=== PATIENT | female | born 1975 | race Caucasian/White ===

== ENCOUNTER 2018-03-02 17:32 | Outpatient (REF) | payer BC, OTHER, SELFPAY | END 2018-03-02 17:52 | LOC: NCHCN 17:32 | PROVIDERS: PCP Family Medicine; Visit Provider Nurse Practitioner Family | DX: R59.0 Localized enlarged lymph nodes (principal) | CPT/HCPCS: 85025 ==

== ENCOUNTER 2018-03-04 03:41 | Emergency (ER) | payer BC, SELFPAY ==
[2018-03-04 03:45] VITALS: BP 129/89; PULSE 90; RESP 14; TEMP 36.4; O2SAT 98
--- NOTE | 2018-03-04 04:16 | ED.GENADUL_ITS ---
Discharge Plan Disposition Patient Disposition: HOME Condition: Good Discharge Details Chief Complaint: Sorethroat Clinical Impression: Strep pharyngitis, Cyst of thyroid Primary Care Provider: Jeremiah Jerez ED Provider: Fredrick Ware [place] Meds and New Rx's Prescriptions: Continue famciclovir 500 MG tablet 500 mg PO DAILY RF: 0 multivitamin [Daily Value] 1 EACH tablet 1 ea PO PRN PRNRF: 0 levothyroxine 50 MCG tablet 50 mcg PO DAILY RF: 0 Discharge Instructions Instructions: Strep Throat (ED) Additional Instructions: Rest today and drink plenty of fluids to stay hydrated. Use ibuprofen or acetaminophen for pain. Try Cepacol lozenges to help soothe the throat. Follow -up with primary care in a couple days if not doing better. Discussed with primary care changing the neck ultrasound to a thyroid ultrasound. Return to ED for inability to swallow, difficulty breathing, worsening pain, high fever, other concerns. Stand Alone Forms: Work Release Referrals: Jeremiah Jerez [Primary Care Provider] - Medical Decision Making Patient here with difficulty swallowing and anterior neck pain. She seems to have some anterior neck swelling almost like diffuse thyroid gland swelling. I do not feel discrete lymph nodes. Difficult to examine her neck though because of so much tenderness. She has no respiratory difficulty. Airway is intact with no stridor. She is not febrile. Posterior oropharynx looks clear. We will go ahead and get a strep swab but I do not think that is what is going on. We will place an IV and check labs and do a CT scan of the neck with IV contrast. Patient's rapid strep is faintly positive. White count is slightly elevated to 14.5. TSH normal. CMP normal. CT scan of the neck shows no lymphadenopathy. Normal salivary glands. Normal epiglottis, no evidence of tonsillar swelling or abscess. There is a cyst in the right lobe of the thyroid. This will need outpatient ultrasound follow-up. Discussed findings with patient. She is not febrile. She does not have erythema or exudate in the throat. She does have significant pain. Discussed waiting for cultures versus just treating with penicillin. She would like to just have a shot of penicillin and be done with it. She will follow-up with primary care in the next couple of days if not better. She will need to discuss with him the thyroid ultrasound. Return to ED if worse. Imaging Data Radiologic Study: Imaging: CT Scan Radiologist's impression: Patient Name: Leighton JOHNSTON #: [id number]: ER Ordering Provider: : PRE ER Primary Care Provider: Jeremiah Jerez Date of Exam: 03/04/18ex: F : 1975Age: 43 Exam(s) EXAM: CT Neck With Intravenous Contrast EXAM DATE/TIME: 03/04/2018 4:05 AM CLINICAL HISTORY: 43 years old, female; Signs and symptoms; Other: Anterior neck pain/swelling; Trouble swallowing; Prior surgery; Surgery date: 6+ months; Surgery type: Surgery related to hodgkins TECHNIQUE: Axial computed tomography images of the neck with intravenous contrast. All CT scans at this facility use at least one of these dose optimization techniques: automated exposure control; mA and/or kV adjustment per patient size (includes targeted exams where dose is matched to clinical indication); or iterative reconstruction. Coronal and sagittal reformatted images were created and reviewed. CONTRAST: 100 ml of Omnipaque 350 administered intravenously. COMPARISON: No relevant prior studies available. FINDINGS: Nasopharynx: Normal. Oropharynx: Normal. No significant tonsillar enlargement. No peritonsillar abscess. Hypopharynx: Normal. Larynx: Normal. Normal epiglottis. Trachea: Normal. Retropharyngeal space: Normal. Submandibular/Parotid glands: Normal. Glands are normal in size. Thyroid: Hypodense thyroid lesions noted most prominent on the right which may reflect colloid cysts measuring up to 17 x 14 mm.Recommend follow-up thyroid ultrasound.. Bones/joints: Normal. No acute fracture. Soft tissues: Normal. No significant soft tissue swelling. Vasculature: No acute findings. Lymph nodes: Normal. No lymphadenopathy. Lung apices: Normal as visualized. IMPRESSION: No acute findings Incidental findings that may require followup: Hypodense thyroid lesions noted most prominent on the right which may reflect colloid cysts measuring up to 17 x 14 mm.Recommend follow-up thyroid ultrasound.. Dictated and Authenticated by: Carlos Owusu MD. Ordering:RUSTY KELLY MD Lab Data Lab results reviewed: Yes I reviewed the patient's lab results. HPI General Mode of arrival: ambulatory . Date/Time Provider Initiated Documentation: 03/04/18 03:51 . Limitations to Documentation: no limitations . Information obtained by: patient . HPI Narrative: Patient presents with sore throat, difficulty swallowing, anterior neck pain. Patient reports history of intermittent hoarseness for the last month. Seem to get worse over the weekend with some pain in the left side of her neck. She was seen by primary care physician on Friday for increasing pain. Labs and ultrasound were ordered. She was told to come to the ED if she got worse in the meantime. Now she is having difficulty swallowing and is more hoarse. She is not having trouble breathing. She has not had fever. She has a history of Hodgkin's disease. She has not noticed lymph nodes anywhere. She has not had night sweats or weight loss. Related Data Home Medications Medication Instructions Recorded Confirmed famciclovir 500 mg PO DAILY 04/10/16 03/04/18 levothyroxine 50 mcg PO DAILY 04/10/16 03/04/18 multivitamin [Daily Value] 1 ea PO PRN PRN 04/10/16 03/04/18 Allergies Allergy/AdvReac Type Severity Reaction Status Date / Time No Known Drug Allergies Allergy Unverified 03/04/18 03:45 General Stated Complaint: Sorethroat HALLE: 4 Review of Systems Constitutional Denies fatigue, Denies fever(s), Denies headache(s), Denies malaise, Denies night sweats, Denies poor appetite, Denies weakness and Denies weight loss Eyes Denies change in vision and Denies eye discharge ENT Reports dysphagia, Denies otalgia, Denies headache(s), Reports hoarseness, Denies mouth lesions, Denies mouth pain, Denies nasal congestion, Denies nasal discharge, Reports neck pain, Denies sinus pain, Denies sinus pressure and Reports sore throat Cardiovascular Denies chest pain, Denies diaphoresis, Denies syncope, Denies edema and Denies dyspnea Respiratory Denies cough and Denies dyspnea Gastrointestinal Denies abdominal pain, Reports dysphagia, Denies diarrhea, Denies nausea and Denies vomiting Genitourinary Denies dysuria, Denies pelvic pain and Denies flank pain Musculoskeletal Denies back pain, Denies myalgias, Reports neck pain and Denies numbness Integumentary/Breasts Denies rash Neurologic Denies abnormal speech, Denies syncope, Denies headache(s), Denies focal weakness, Denies numbness and Denies weakness Endocrine Denies fatigue PFSH H/O: hysterectomy (Chronic) Hodgkin lymphoma (Chronic) Hypothyroid (Chronic) Medical History H/O: hysterectomy (Chronic) Hodgkin lymphoma (Chronic) Hypothyroid (Chronic) Social History Smoking/Tobacco Use Status: Never Social History Smoking/Tobacco Use Status: Never Exam Const General: cooperative, uncomfortable and no acute distress Orientation: alert and oriented x3 HENMT Head: normocephalic and atraumatic Ears: external ears normal General nose exam: external nose normal and no nasal discharge Face and sinus: normal facial exam Mouth: oropharynx normal and moist mucous membranes Throat: uvula midline and posterior oropharynx abnormal Neck Neck: trachea midline, anterior neck swelling (mild), no lymphadenopathy noted and tender Resp Effort & Inspection: normal respiratory effort and no stridor Auscultation: clear to auscultation bilaterally Cardio Rate: regular rate Rhythm: regular rhythm Heart Sounds: S1 normal and S2 normal Skin General skin exam: no erythema Neuro General: alert, oriented x3, no focal motor deficits and CN's II-XI intact bilaterally Extrem General: no clubbing, cyanosis or edema Course Vital Signs Temperature 97.5 F L 03/04/18 03:45 Pulse 90 03/04/18 03:45 Respiratory Rate 14 03/04/18 03:45 Blood Pressure 129/89 03/04/18 03:45 Pulse Oximetry 98 03/04/18 03:45 Temperature 97.5 F L 03/04/18 03:45 Temperature Source Temporal Artery Scan 03/04/18 03:45 Pulse 90 03/04/18 03:45 Respiratory Rate 14 03/04/18 03:45 Respiratory Effort 03/04/18 03:45 Blood Pressure 129/89 03/04/18 03:45 Blood Pressure Position Sitting 03/04/18 03:45 Pulse Oximetry 98 03/04/18 03:45 Oxygen Delivery Method Room Air 03/04/18 03:45 Oxygen Flow Rate 0 03/04/18 03:45 Pain Level 8 03/04/18 03:45
[2018-03-04 04:24] LABS: Abs Immature Grans 0.03 k/cumm (0.0-0.09); Absolute Basophil Count 0.04 k/cumm (0.0-0.2); Absolute Eosinophil Count 0.13 k/cumm (0.0-0.7); Absolute Lymphocyte Count 3.24 k/cumm (1.2-3.4); Absolute Monocyte Count 0.95 k/cumm (0.11-0.7); Absolute Neutrophil Count 10.06 k/cumm (1.2-6.7); Basophils % 0.3; Eosinophils % 0.9; HCT 40.8 % (36.0-46.0); HGB 13.6 g/dL (12.0-15.5); Immature Grans % 0.2; Lymphocytes % 22.4; Mean Corp. HGB Concentration 33.3 g/dL (32.0-36.0); Mean Corpuscular Hemoglobin 31.6 pg (27.0-33.0); Mean Corpuscular Volume 94.7 fL (80-95); Mean Platelet Volume 9.1 fL (8.0-11.0); Monocytes % 6.6; Neutrophils % 69.6; Platelet Count 334 x1000/uL (130-400); RBC 4.31 m/cumm (4.00-5.20); RBC Distribution Width 12.8 % (11.7-14.6); White Blood Cell Count 14.46 k/cumm (4.4-10.8)
[2018-03-04] MEDS: Ketorolac 15 MG/ML VIAL IVP (04:24)
[2018-03-04] MEDS: Normal Saline 1,000 ML 150 ML IV (04:24)
[2018-03-04 04:47] LABS: ALT 38 U/L (12-78); AST 26 U/L (15-37); Albumin 3.7 g/dL (3.4-5.0); Alkaline Phosphatase 90 U/L (46-116); Anion Gap 8.4 mmol/L (3-11); BUN 18 mg/dL (7-18); Bilirubin, Total 0.2 mg/dL (0.2-1.0); CO2 27.6 mmol/L (21.0-32.0); CREATININE 0.73 mg/dL (0.55-1.02); Calcium 9.2 mg/dL (8.5-10.1); Chloride 103 mmol/L (98-107); Glucose 94 mg/dL (70-100); Potassium 4.1 mmol/L (3.5-5.1); Sodium 139 mmol/L (136-145); TSH (W/Ref FT4) 2.99 uIU/mL (0.358-3.74)
--- NOTE | 2018-03-04 04:55 | DI.CT_ITS ---
SYMPTOMS/DIAGNOSIS: ANTERIOR NECK PAIN/SWELLING, TROUBLE SWALLOWING, H/O HODGKIN'S CT OF THE NECK: Post contrast exam was performed. No abscess or other fluid collection is seen. The parotid and submandibular glands appear normal. The epiglottis appears normal. There is no significant tonsillar enlargement. Low density areas are noted in both lobes of the thyroid, right greater than left, which could represent colloid cysts. A thyroid ultrasound could be performed for further evaluation.
[2018-03-04] MEDS: Omnipaque 350 MG/ML 100 ML BTL IJ (04:57)
--- NOTE | 2018-03-04 05:21 | DI.VRAD_ITS ---
EXAM: CT Neck With Intravenous Contrast EXAM DATE/TIME: 03/04/2018 4:05 AM CLINICAL HISTORY: 43 years old, female; Signs and symptoms; Other: Anterior neck pain/swelling; Trouble swallowing; Prior surgery; Surgery date: 6+ months; Surgery type: Surgery related to hodgkins TECHNIQUE: Axial computed tomography images of the neck with intravenous contrast. All CT scans at this facility use at least one of these dose optimization techniques: automated exposure control; mA and/or kV adjustment per patient size (includes targeted exams where dose is matched to clinical indication); or iterative reconstruction. Coronal and sagittal reformatted images were created and reviewed. CONTRAST: 100 ml of Omnipaque 350 administered intravenously. COMPARISON: No relevant prior studies available. FINDINGS: Nasopharynx: Normal. Oropharynx: Normal. No significant tonsillar enlargement. No peritonsillar abscess. Hypopharynx: Normal. Larynx: Normal. Normal epiglottis. Trachea: Normal. Retropharyngeal space: Normal. Submandibular/Parotid glands: Normal. Glands are normal in size. Thyroid: Hypodense thyroid lesions noted most prominent on the right which may reflect colloid cysts measuring up to 17 x 14 mm.Recommend follow-up thyroid ultrasound.. Bones/joints: Normal. No acute fracture. Soft tissues: Normal. No significant soft tissue swelling. Vasculature: No acute findings. Lymph nodes: Normal. No lymphadenopathy. Lung apices: Normal as visualized. IMPRESSION: No acute findings Incidental findings that may require followup: Hypodense thyroid lesions noted most prominent on the right which may reflect colloid cysts measuring up to 17 x 14 mm.Recommend follow-up thyroid ultrasound.. Dictated and Authenticated by: Carlos Owusu MD. Ordering:RUSTY KELLY MD
[2018-03-04 05:47] VITALS: BP 105/71; PULSE 79; RESP 16; TEMP 36.7; O2SAT 98
== END 2018-03-04 05:53 | disposition home or self-care (01) ==
PROVIDERS: Emergency Provider Emergency Medicine; PCP Family Medicine
DX: J02.0 Streptococcal pharyngitis (principal); E04.1 Nontoxic single thyroid nodule; R13.10 Dysphagia, unspecified; R49.0 Dysphonia; C85.90 Non-Hodgkin lymphoma, unspecified, unspecified site
CPT/HCPCS: 36415; 70491; 80053; 87880; 96361; 96372; 96374; 99285; 84443; 85025; 99284; J0561; J1885; J3490

== ENCOUNTER 2018-03-05 00:23 | Outpatient (CLI) | payer BC, OTHER, SELFPAY ==
--- NOTE | 2018-03-05 13:02 | DI.US_ITS ---
SYMPTOMS/DIAGNOSIS: F/U CT, ? MASS OF THYROID THYROID ULTRASOUND: Comparison is made with chest CT dated 5Dec18. The right lobe of the thyroid measures 2.8 x 1.8 x 5.2 cm. There is a fluid filled area in the lower pole of the right lobe of the thyroid measuring 1.6 cm. There is surrounding blood flow. An additional more solid nodular area is seen in the upper pole of the right lobe. A 5 mm hypoechoic area is also identified. The overall echotexture is heterogeneous. The left lobe of the thyroid shows two small circumscribed hypoechoic lesions likely representing colloid cysts. The isthmus is unremarkable. The left lobe measures 1.0 x 1.1 x 4.1 cm. IMPRESSION: Mixed solid and cystic mass in the right lobe of the thyroid. Biopsy could be considered for further evaluation.
== END 2018-03-05 00:43 ==
PROVIDERS: PCP Family Medicine; Visit Provider Nurse Practitioner Family
DX: D44.0 Neoplasm of uncertain behavior of thyroid gland (principal); E04.2 Nontoxic multinodular goiter; R59.0 Localized enlarged lymph nodes
CPT/HCPCS: 76536

== ENCOUNTER 2018-05-16 20:51 | Emergency (ER) | payer BC, SELFPAY ==
[2018-05-16 20:57] VITALS: BP 119/76; PULSE 81; RESP 15; TEMP 36.7; O2SAT 99
--- NOTE | 2018-05-16 21:07 | DI.CT_ITS ---
SYMPTOM/DIAGNOSIS: DIFFICULTY BREATHING, POST THYROIDECTOMY NECK CT: CT scan of the neck was performed following the uneventful administration of intravenous contrast material. Comparison is made with 03/04/18. The oropharynx, hypopharynx, nasopharynx and larynx are unremarkable. Since the prior examination, the patient has undergone a thyroidectomy. No focal fluid collection is seen in the thyroid bed. The submandibular and parotid glands are unremarkable. No significant cervical adenopathy is appreciated. The bones are intact. The lung apices are clear. IMPRESSION: Post surgical changes of a thyroidectomy. No acute abnormality.
--- NOTE | 2018-05-16 21:09 | W.ED.GENAD ---
Discharge Plan Disposition Patient Disposition: HOME Condition: Stable Discharge Details Chief Complaint: Sorethroat Clinical Impression: Anterior neck pain Primary Care Provider: Jeremiah Jerez ED Provider: Liang Mora Home Meds and New Rx's Prescriptions: Continued famciclovir 500 MG tablet 500 mg PO DAILY RF: 0 multivitamin [Daily Value] 1 EACH tablet 1 ea PO PRN PRNRF: 0 levothyroxine 50 MCG tablet 50 mcg PO DAILY RF: 0 Discharge Instructions Instructions: Neck Pain (ED) Additional Instructions: Return immediately to the emergency department for any new or worsening symptoms, any further concerns, difficulty breathing, inability to swallow. Otherwise continue to take your medication as prescribed and follow-up with your surgeon or your primary care provider next week for reassessment. Referrals: Jeremiah Jerez [Primary Care Provider] - Medical Decision Making Patient presenting to the emergency department for chief complaint of neck pain. Patient states that she is roughly 2 weeks status post thyroidectomy. She states over the past week though she has felt increasing mass in her neck making it difficulty to breathe at times. Physical exam shows a stable talkative patient in no acute signs of distress, normal lung sounds, mild anterior midline lower neck swelling with tenderness without erythema, crepitus, upper airway exam is unremarkable. Given patient is postsurgical and complaining of difficulty breathing with a sensation of neck mass I do feel that CT imaging is warranted. Patient is otherwise stable with no obvious signs of airway emergent involvement so we will continue to monitor. Review of labs and CT imaging shows postoperative changes on imaging but no acute airway emergency. Labs nondiagnostic. Patient reassessed and continues to remain stable without any acute changes or airway compromise. Patient encouraged to call surgeon who performed the procedure next week for reassessment or to return as needed. After discussion of diagnosis and plan of care patient has no further needs, questions, or concerns and states clear understanding to return to the emergency department for any worsening symptoms. HPI General Mode of arrival: ambulatory. Date/Time Provider Initiated Documentation: 05/16/18 20:52. Limitations to Documentation: no limitations. Information obtained by: patient. History of Present Illness 43 year old F presents to the emergency department with the chief complaint of Neck pain, difficulty breathing, described as moderate, Quality is described as aching, and is localized to the neck. Patient started experiencing this week(s) (1) and it has been constant. No relieving factors improve symptom(s), Patient notes no other symptoms.. Patient did receive the following treatments prior to arrival, none Related Data Home Medications Medication Instructions Recorded Confirmed famciclovir 500 mg PO DAILY 04/10/16 03/04/18 levothyroxine 50 mcg PO DAILY 04/10/16 03/04/18 multivitamin [Daily Value] 1 ea PO PRN PRN 04/10/16 03/04/18 Allergies Allergy/AdvReac Type Severity Reaction Status Date / Time No Known Drug Allergies Allergy Unverified 05/16/18 21:02 General Stated Complaint: Sorethroat HALLE: 3 Review of Systems Constitutional Denies chills, Denies fever(s), Denies headache(s) and Denies malaise ENT Denies change in voice, Denies dysphagia, Denies headache(s), Denies hoarseness, Denies lip swelling, Denies mouth lesions, Denies neck mass, Reports neck pain, Reports sore throat, Denies throat swelling and Denies tongue swelling Cardiovascular Denies chest pain Respiratory Denies chest congestion and Denies cough Gastrointestinal Denies dysphagia Musculoskeletal Reports neck pain Neurologic Denies headache(s) Allergic/Immunologic Denies lip swelling, Denies throat swelling and Denies tongue swelling PFSH Medical History H/O: hysterectomy (Chronic) Hodgkin lymphoma (Chronic) Hypothyroid (Chronic) Social History Smoking and Tabacco status: Never Exam Const General: cooperative, healthy appearing, comfortable, no acute distress and not ill appearing Orientation: alert, awake and oriented x3 HENMT Head: normal to inspection and normocephalic General nose exam: external nose normal and nares normal Face and sinus: normal facial exam Mouth: oral mucosae normal, lip normal, tongue normal, no audible dysphonia, no drooling and no trismus Throat: posterior oropharynx normal, tonsils normal, uvula midline and no peritonsillar masses Neck Neck: full ROM, no lymphadenopathy, no meningeal signs, trachea midline, supple, anterior neck swelling and tender (Anterior) Resp Effort & Inspection: normal respiratory effort, able to speak in complete sentences and no stridor Auscultation: clear to auscultation bilaterally Cardio Rate: regular rate Rhythm: regular rhythm Heart Sounds: S1 normal and S2 normal Skin General skin exam: no rashes or lesions noted Course Vital Signs Temperature 36.7 C 05/16/18 20:57 Pulse 81 05/16/18 20:57 Respiratory Rate 15 05/16/18 20:57 Blood Pressure 119/76 05/16/18 20:57 Pulse Oximetry 99 05/16/18 20:57 Temperature 36.7 C 05/16/18 20:57 Temperature Source Temporal Artery Scan 05/16/18 20:57 Pulse 81 05/16/18 20:57 Respiratory Rate 15 05/16/18 20:57 Respiratory Effort Non-Labored 05/16/18 21:04 Blood Pressure 119/76 05/16/18 20:57 Blood Pressure Position Sitting 05/16/18 20:57 Pulse Oximetry 99 05/16/18 20:57 Oxygen Delivery Method Room Air 05/16/18 20:57 Oxygen Flow Rate 0 05/16/18 20:57 Pain Level 0 05/16/18 20:57
--- NOTE | 2018-05-16 21:18 | ED.GENADUL_ITS ---
Discharge Plan Disposition Patient Disposition: HOME Condition: Stable Discharge Details Chief Complaint: Sorethroat Clinical Impression: Anterior neck pain Primary Care Provider: Jeremiah Jerez ED Provider: Liang Mora Home Meds and New Rx's Prescriptions: Continued famciclovir 500 MG tablet 500 mg PO DAILY RF: 0 multivitamin [Daily Value] 1 EACH tablet 1 ea PO PRN PRNRF: 0 levothyroxine 50 MCG tablet 50 mcg PO DAILY RF: 0 Discharge Instructions Instructions: Neck Pain (ED) Additional Instructions: Return immediately to the emergency department for any new or worsening symptoms, any further concerns, difficulty breathing, inability to swallow. Otherwise continue to take your medication as prescribed and follow-up with your surgeon or your primary care provider next week for reassessment. Referrals: Jeremiah Jerez [Primary Care Provider] - Medical Decision Making Patient presenting to the emergency department for chief complaint of neck pain. Patient states that she is roughly 2 weeks status post thyroidectomy. She sta madan over the past week though she has felt increasing mass in her neck making it difficulty to breathe at times. Physical exam shows a stable talkative patient in no acute signs of distress, normal lung sounds, mild anterior midline lower neck swelling with tenderness without erythema, crepitus, upper airway exam is unremarkable. Given patient is postsurgical and complaining of difficulty breathing with a sensation of neck mass I do feel that CT imaging is warranted. Patient is otherwise stable with no obvious signs of airway emergent involvement so we will continue to monitor. Review of labs and CT imaging shows postoperative changes on imaging but no acute airway emergency. Labs nondiagnostic. Patient reassessed and continues to remain stable without any acute changes or airway compromise. Patient encouraged to call surgeon who performed the procedure next week for reassessment or to return as needed. After discussion of diagnosis and plan of care patient has no further needs, questions, or concerns and states clear understanding to return to the emergency department for any worsening symptoms. HPI General Mode of arrival: ambulatory . Date/Time Provider Initiated Documentation: 05/16/18 20:52 . Limitations to Documentation: no limitations . Information obtained by: patient . History of Present Illness 43 year old F presents to the emergency department with the chief complaint of Neck pain, difficulty breathing, described as moderate, Quality is described as aching, and is localized to the neck. Patient started experiencing this week(s) (1) and it has been constant. No relieving factors improve symptom(s), Patient notes no other symptoms.. Patient did receive the following treatments prior to arrival, none Related Data Home Medications Medication Instructions Recorded Confirmed famciclovir 500 mg PO DAILY 04/10/16 03/04/18 levothyroxine 50 mcg PO DAILY 04/10/16 03/04/18 multivitamin [Daily Value] 1 ea PO PRN PRN 04/10/16 03/04/18 Allergies Allergy/AdvReac Type Severity Reaction Status Date / Time No Known Drug Allergies Allergy Unverified 05/16/18 21:02 General Stated Complaint: Sorethroat HALLE: 3 Review of Systems Constitutional Denies chills, Denies fever(s), Denies headache(s) and Denies malaise ENT Denies change in voice, Denies dysphagia, Denies headache(s), Denies hoarseness, Denies lip swelling, Denies mouth lesions, Denies neck mass, Reports neck pain, Reports sore throat, Denies throat swelling and Denies tongue swelling Cardiovascular Denies chest pain Respiratory Denies chest congestion and Denies cough Gastrointestinal Denies dysphagia Musculoskeletal Reports neck pain Neurologic Denies headache(s) Allergic/Immunologic Denies lip swelling, Denies throat swelling and Denies tongue swelling [facility] Medical History H/O: hysterectomy (Chronic) Hodgkin lymphoma (Chronic) Hypothyroid (Chronic) Social History Smoking and Tabacco status: Never Exam Const General: cooperative, healthy appearing, comfortable, no acute distress and not ill appearing Orientation: alert, awake and oriented x3 HENMT Head: normal to inspection and normocephalic General nose exam: external nose normal and nares normal Face and sinus: normal facial exam Mouth: oral mucosae normal, lip normal, tongue normal, no audible dysphonia, no drooling and no trismus Throat: posterior oropharynx normal, tonsils normal, uvula midline and no peritonsillar masses Neck Neck: full ROM, no lymphadenopathy, no meningeal signs, trachea midline, supple, anterior neck swelling and tender (Anterior) Resp Effort & Inspection: normal respiratory effort, able to speak in complete sentences and no stridor Auscultation: clear to auscultation bilaterally Cardio Rate: regular rate Rhythm: regular rhythm Heart Sounds: S1 normal and S2 normal Skin General skin exam: no rashes or lesions noted Course Vital Signs Temperature 36.7 C 05/16/18 20:57 Pulse 81 05/16/18 20:57 Respiratory Rate 15 05/16/18 20:57 Blood Pressure 119/76 05/16/18 20:57 Pulse Oximetry 99 05/16/18 20:57 Temperature 36.7 C 05/16/18 20:57 Temperature Source Temporal Artery Scan 05/16/18 20:57 Pulse 81 05/16/18 20:57 Respiratory Rate 15 05/16/18 20:57 Respiratory Effort Non-Labored 05/16/18 21:04 Blood Pressure 119/76 05/16/18 20:57 Blood Pressure Position Sitting 05/16/18 20:57 Pulse Oximetry 99 05/16/18 20:57 Oxygen Delivery Method Room Air 05/16/18 20:57 Oxygen Flow Rate 0 05/16/18 20:57 Pain Level 0 05/16/18 20:57
[2018-05-16 21:34] LABS: Abs Immature Grans 0.03 k/cumm (0.0-0.09); Absolute Basophil Count 0.05 k/cumm (0.0-0.2); Absolute Eosinophil Count 0.07 k/cumm (0.0-0.7); Absolute Lymphocyte Count 4.86 k/cumm (1.2-3.4); Absolute Monocyte Count 1.02 k/cumm (0.11-0.7); Absolute Neutrophil Count 5.82 k/cumm (1.2-6.7); Basophils % 0.4; Eosinophils % 0.6; HCT 40.9 % (36.0-46.0); HGB 13.5 g/dL (12.0-15.5); Immature Grans % 0.3; Mean Corpuscular Hemoglobin 30.5 pg (27.0-33.0); Mean Corpuscular Volume 92.3 fL (80-95); Mean Platelet Volume 9.2 fL (8.0-11.0); Monocytes % 8.6; Neutrophils % 49.1; Platelet Count 303 x1000/uL (130-400); RBC 4.43 m/cumm (4.00-5.20); White Blood Cell Count 11.85 k/cumm (4.4-10.8)
[2018-05-16] MEDS: Omnipaque 350 MG/ML 100 ML BTL IJ (21:41)
[2018-05-16 21:46] LABS: ALT 32 U/L (12-78); AST 19 U/L (15-37); Albumin 3.4 g/dL (3.4-5.0); Alkaline Phosphatase 95 U/L (46-116); Anion Gap 12.2 mmol/L (3-11); BUN 12 mg/dL (7-18); Bilirubin, Total 0.2 mg/dL (0.2-1.0); CO2 24.8 mmol/L (21.0-32.0); CREATININE 0.82 mg/dL (0.55-1.02); Calcium 8.5 mg/dL (8.5-10.1); Chloride 102 mmol/L (98-107); Glucose 106 mg/dL (70-100); Potassium 3.8 mmol/L (3.5-5.1); Sodium 139 mmol/L (136-145); Total Protein 7.8 g/dL (6.4-8.2)
--- NOTE | 2018-05-16 22:14 | DI.VRAD_ITS ---
EXAM: CT Neck With Contrast EXAM DATE/TIME: 05/16/2018 9:09 PM CLINICAL HISTORY: 43 years old, female; Signs and symptoms; Dyspnea / difficulty breathing; Prior surgery; Surgery date: <1 month; Surgery type: Thyroidectomy S/P 2 weeks prior to exam TECHNIQUE: Axial computed tomography images of the neck with intravenous contrast. Coronal and sagittal reformatted images were created and reviewed. COMPARISON: CT Neck^NECK ST W ROUTINE (Adult) 03/04/2018 4:40 AM FINDINGS: Oropharynx: Normal. No significant tonsillar enlargement. Larynx: Normal. Normal epiglottis. Submandibular/Parotid glands: Normal. Glands are normal in size. Thyroid: Recent thyroidectomy. Lymph nodes: Normal. No lymphadenopathy. Lungs: Normal as visualized. Vasculature: No acute findings. Bones/joints: Normal. No acute fracture. Soft tissues: Unremarkable. IMPRESSION: Postoperative changes. No acute findings. Dictated and Authenticated by: Ish Hall MD. Ordering:MIRIAN Tavera MD
[2018-05-16 22:32] VITALS: BP 119/76; PULSE 81; RESP 15; TEMP 36.7; O2SAT 99
== END 2018-05-16 22:32 | disposition home or self-care (01) ==
PROVIDERS: Emergency Provider Nurse Practitioner Family; PCP Family Medicine
DX: M54.2 Cervicalgia (principal); E89.0 Postprocedural hypothyroidism
CPT/HCPCS: 36415; 70491; 80053; 99285; 85025; 99284; J3490

== ENCOUNTER 2019-12-22 16:57 | Outpatient (REF) | payer BC, SELFPAY ==
[2019-12-22 20:38] LABS: TSH < 0.01 uIU/mL (0.36-3.74)
== END 2019-12-22 17:17 ==
LOC: NCHCN 16:57
PROVIDERS: PCP Family Medicine; Visit Provider Nurse Practitioner Family
DX: E03.9 Hypothyroidism, unspecified (principal)
CPT/HCPCS: 84443

== ENCOUNTER 2020-02-09 16:32 | Outpatient (REF) | payer BC, SELFPAY ==
[2020-02-09 20:23] LABS: TSH < 0.01 uIU/mL (0.36-3.74)
== END 2020-02-09 16:52 ==
LOC: NCHCN 16:32
PROVIDERS: PCP Family Medicine; Visit Provider Nurse Practitioner Family
DX: E03.9 Hypothyroidism, unspecified (principal)
CPT/HCPCS: 84443

== ENCOUNTER 2020-03-29 20:03 | Outpatient (REF) | payer BC, SELFPAY ==
[2020-03-31 08:48] LABS: HIV-1/2 Ag & Ab Screen Negative (Negative)
[2020-03-31 08:57] LABS: Hepatitis C Ab w Rflx HCV PCR Negative (Negative)
[2020-03-31 10:42] LABS: HSV Type 1 Ab, IgG Positive (Negative); HSV Type 2 Ab, IgG Negative (Negative)
[2020-03-31 10:50] LABS: Syphilis Serology (RPR) Negative (Negative)
[2020-04-01 08:03] LABS: Chlamydia Result Negative (Negative); GC Result Negative (Negative)
== END 2020-03-29 20:23 ==
LOC: NCHCN 20:03
PROVIDERS: PCP Family Medicine; Visit Provider Nurse Practitioner Family
DX: Z11.3 Encounter for screening for infections with a predominantly sexual mode of transmission (principal); Z11.4 Encounter for screening for human immunodeficiency virus [HIV]; Z11.59 Encounter for screening for other viral diseases
CPT/HCPCS: 86803; 87389; 87491; 87591; 86592; 86695; 86696

== ENCOUNTER 2020-05-05 01:32 | Outpatient (CLI) | payer BC, SELFPAY ==
[2020-05-06 14:39] LABS: COVID-19 RT-PCR UVMMC Result Negative (Negative)
== END 2020-05-05 01:33 | disposition home or self-care (01) ==
LOC: LBO 01:32
PROVIDERS: PCP Family Medicine; Visit Provider Surgery Plastic and Reconstructive Surgery
DX: Z20.822 Contact with and (suspected) exposure to COVID-19 (principal); Z01.818 Encounter for other preprocedural examination
CPT/HCPCS: U0003

== ENCOUNTER 2020-07-19 20:04 | Outpatient (REF) | payer BC, SELFPAY | END 2020-07-19 20:05 | disposition home or self-care (01) | LOC: NCHCN 20:04 | PROVIDERS: PCP Family Medicine; Visit Provider Nurse Practitioner Family | DX: N76.0 Acute vaginitis (principal) | CPT/HCPCS: 87480; 87510; 87660 ==

== ENCOUNTER 2021-04-06 22:42 | Outpatient (REF) | payer BC, SELFPAY ==
[2021-04-06 21:32] LABS: TSH (W/Ref FT4) 0.01 uIU/mL (0.36-3.74)
[2021-04-06 21:52] LABS: FREE T4 1.26 ng/dL (0.76-1.46)
== END 2021-04-06 22:43 | disposition home or self-care (01) ==
LOC: NCHCN 22:42
PROVIDERS: PCP Family Medicine; Visit Provider Nurse Practitioner Family
DX: Z85.850 Personal history of malignant neoplasm of thyroid (principal)
CPT/HCPCS: 84439; 84443

== ENCOUNTER 2022-09-04 16:26 | Outpatient (REF) | payer BC, SELFPAY ==
[2022-09-04 19:18] LABS: TSH (W/Ref FT4) 0.01 uIU/mL (0.36-3.74)
[2022-09-04 20:22] LABS: FREE T4 1.93 ng/dL (0.76-1.46)
== END 2022-09-04 16:27 | disposition home or self-care (01) ==
LOC: NCHCN 16:26
PROVIDERS: PCP Family Medicine; Visit Provider Nurse Practitioner Family
DX: E03.9 Hypothyroidism, unspecified (principal)
CPT/HCPCS: 84439; 84443

== ENCOUNTER 2022-12-14 10:24 | Outpatient (REF) | payer BC, SELFPAY ==
[2022-12-14 16:04] LABS: Bacteria Negative HPF (Negative); Crystals Negative HPF (Negative); Epithelial Cells Rare HPF (Negative); Mucus Trace (Negative); RBC 20-50 HPF (0-2); WBC >50 HPF (0-5)
[2022-12-14 16:07] LABS: C & S Indicated? C&S Done As Ordered
== END 2022-12-14 10:25 | disposition home or self-care (01) ==
LOC: LBN 10:24
PROVIDERS: PCP Family Medicine; Visit Provider Physician Assistant Medical
DX: N89.8 Other specified noninflammatory disorders of vagina (principal); R30.0 Dysuria; R82.998 Other abnormal findings in urine
CPT/HCPCS: 81015; 87086; 87480; 87510; 87660

== ENCOUNTER 2022-12-23 12:58 | Outpatient (REF) | payer BC, SELFPAY ==
[2022-12-23 18:12] LABS: FREE T4 1.31 ng/dL (0.76-1.46); TSH 0.02 uIU/mL (0.36-3.74)
== END 2022-12-23 12:59 | disposition home or self-care (01) ==
LOC: NCHCN 12:58
PROVIDERS: PCP Family Medicine; Visit Provider Nurse Practitioner Family
DX: E03.9 Hypothyroidism, unspecified (principal)
CPT/HCPCS: 84439; 84443

== ENCOUNTER 2023-02-27 14:54 | Outpatient (REF) | payer BC, SELFPAY ==
[2023-02-27 18:41] LABS: TSH (W/Ref FT4) 5.78 uIU/mL (0.36-3.74)
[2023-02-27 19:42] LABS: FREE T4 0.87 ng/dL (0.76-1.46)
== END 2023-02-27 14:55 | disposition home or self-care (01) ==
LOC: NCHCN 14:54
PROVIDERS: PCP Family Medicine; Visit Provider Nurse Practitioner Family
DX: E03.9 Hypothyroidism, unspecified (principal)
CPT/HCPCS: 84439; 84443

== ENCOUNTER 2023-06-25 09:14 | Outpatient (REF) | payer BC, SELFPAY ==
[2023-06-25 16:34] LABS: TSH < 0.01 uIU/Ml (0.36-3.74)
== END 2023-06-25 09:15 | disposition home or self-care (01) ==
LOC: NCHCN 09:14
PROVIDERS: PCP Family Medicine; Visit Provider Nurse Practitioner Family
DX: E03.9 Hypothyroidism, unspecified (principal)
CPT/HCPCS: 84439; 84443

== ENCOUNTER 2023-06-30 09:47 | Outpatient (REF) | payer BC, SELFPAY ==
[2023-06-30 15:32] LABS: Abs Immature Grans 0.01 10^3/uL (0.0-0.06); Absolute Basophil Count 0.03 10^3/uL (0.0-0.2); Absolute Eosinophil Count 0.04 10^3/uL (0.0-0.7); Absolute Lymphocyte Count 2.28 10^3/uL (1.2-3.4); Absolute Neutrophil Count 2.86 10^3/uL (1.2-6.7); Basophils % 0.5; Eosinophils % 0.7; HCT 42.4 % (36.0-46.0); Immature Grans % 0.2; Lymphocytes % 40.6; MCH 31.3 pg (27.0-33.0); MCV 95 fL (80-95); MPV 9.4 fL (8.0-11.0); Monocytes % 7.1; Neutrophils % 50.9; Platelet Count 291 10^3/uL (130-400); RBC 4.48 10^6/uL (3.93-5.22); RDW 11.9 % (11.7-14.6); RDW-SD 41.4 fL; WBC 5.62 10^3/uL (4.4-10.8)
[2023-06-30 15:49] LABS: ESR 12 mm/hr (0-20)
[2023-06-30 16:00] LABS: Hemoglobin A1C 5.6 % (<5.7)
[2023-06-30 16:02] LABS: ALT 26 U/L (14-59); AST 18 U/L (15-37); Albumin 3.7 g/dL (3.4-5.0); Alkaline Phosphatase 94 U/L (46-116); Anion Gap 11.4 mmol/L (3-11); BUN 22 mg/dL (7-18); Bilirubin, Total 0.5 mg/dL (0.2-1.0); CO2 26.6 mmol/L (21.0-32.0); CREATININE 0.7 mg/dL (0.55-1.02); Calcium 8.7 mg/dL (8.5-10.1); Chloride 103 mmol/L (98-107); Estimated GFR 107.28 (mL/min/1.73m2); FREE T4 1.72 ng/dL (0.76-1.46); Glucose 96 mg/dL (74-106); Magnesium 1.9 mg/dL (1.8-2.4); Potassium 4.3 mmol/L (3.5-5.1); Sodium 141 mmol/L (136-145); TSH < 0.01 uIU/Ml (0.36-3.74); Total Protein 7.1 g/dL (6.4-8.2)
[2023-06-30 16:12] LABS: Iron 95 ug/dL (50-170); Total Iron Binding Capacity 303 ug/dL (250-450); Transferrin Sat 31 % (15-50)
[2023-06-30 16:46] LABS: Ferritin 173 ng/mL (8-252); Vitamin B12 645 pg/mL (193-986)
[2023-06-30 16:47] LABS: Folate > 20.0 ng/mL (8.6-20.0)
[2023-06-30 17:00] LABS: Vitamin D 25 Total 48.9 ng/mL (30-100)
[2023-06-30 21:49] LABS: T3, Total 185 ng/dL (97-169)
[2023-06-30 22:43] LABS: Thyroglobulin Antibody <15 U/mL (<=60); Thyroperoxidase Antibody <28 U/mL (<=60)
[2023-07-01 14:57] LABS: ANA Interpretation Negative (Negative)
== END 2023-06-30 09:48 | disposition home or self-care (01) ==
LOC: NCHCN 09:47
PROVIDERS: PCP Family Medicine; Visit Provider Nurse Practitioner Family
DX: R53.83 Other fatigue (principal)
CPT/HCPCS: 80053; 82306; 85652; 82607; 82728; 82746; 83036; 83540; 83550; 83735; 84439; 84443; 84480; 85025; 86038; 86376; 86800

== ENCOUNTER → 2023-07-29 01:54 | Outpatient (CLI) | payer BC, SELFPAY ==
--- NOTE | 2023-07-29 16:05 | DI.RAD_ITS ---
Exam(s) XR HAND LT COMPLETE EXAM: XR HAND LT COMPLETE CLINICAL HISTORY: PAIN LT HAND, M79.642. TECHNIQUE: 2D digital imaging was performed. COMPARISON: CR XR HAND RT COMPLETE from 07/29/2023 FINDINGS: 3 views No evidence of fracture or subluxation. Bone density normal. No osseous lesions. No erosions evide nt. No degenerative changes. IMPRESSION: No significant radiographic findings on these three views of the left wrist and hand. DATA REPOSITORY: RADIATION DOSE DELIVERED:
--- NOTE | 2023-07-29 16:05 | DI.RAD_ITS ---
Exam(s) XR HAND RT COMPLETE EXAM: XR HAND RT COMPLETE CLINICAL HISTORY: PAIN RT HAND, M79.641. TECHNIQUE: 2D digital imaging was performed. COMPARISON: No exams were available for comparison FINDINGS: 3 views No evidence of acute fracture or subluxation. No abnormal soft tissue calcifications. No erosions. No osseous lesions. No degenerative changes. Bone density appears normal. No radiopaque foreign b gatito. IMPRESSION: No significant radiographic findings on these three views of the right hand-wrist. DATA REPOSITORY: RADIATION DOSE DELIVERED:
== END ==
PROVIDERS: PCP Family Medicine; Visit Provider Nurse Practitioner Family
DX: M79.642 Pain in left hand (principal); M79.641 Pain in right hand
CPT/HCPCS: 73130

== ENCOUNTER 2024-05-21 13:35 | Outpatient (REF) | payer BC, SELFPAY ==
[2024-05-21 21:14] LABS: HGB 14.4 g/dL (11.2-15.7); MCHC 33.5 % (32.0-36.0); MCV 90 fL (80-95); MPV 9.5 fL (8.0-11.0); Platelet Count 335 10^3/uL (130-400); RDW 12.2 % (11.7-14.6); RDW-SD 40.1 fL; WBC 8.31 10^3/uL (4.4-10.8)
[2024-05-21 21:47] LABS: ALT 33 U/L (14-59); AST 28 U/L (15-37); Albumin 3.9 g/dL (3.4-5.0); Alkaline Phosphatase 110 U/L (46-116); Anion Gap 5.8 mmol/L (3-11); BUN 15 mg/dL (7-18); Bilirubin, Total 0.33 mg/dL (0.2-1.0); CO2 29.2 mmol/L (21.0-32.0); CREATININE 0.8 mg/dL (0.55-1.02); Calcium 9.4 mg/dL (8.5-10.1); Calculated LDL 157 mg/dL (<100); Chloride 104 mmol/L (98-107); Cholesterol 262 mg/dL (<200); Estimated GFR 90.83 (mL/min/1.73m2); Glucose 96 mg/dL (74-106); HDL Cholesterol 65 mg/dL (40-60); Potassium 4.2 mmol/L (3.5-5.1); Sodium 139 mmol/L (136-145); Triglyceride 203 mg/dL (<150)
[2024-05-21 21:52] LABS: TSH < 0.01 uIU/mL (0.36-3.74)
[2024-05-21 22:08] LABS: FREE T4 1.35 ng/dL (0.76-1.46)
== END 2024-05-21 13:36 | disposition home or self-care (01) ==
LOC: NCHCN 13:35
PROVIDERS: PCP Nurse Practitioner Family; Visit Provider Nurse Practitioner Family
DX: F41.9 Anxiety disorder, unspecified (principal); E03.9 Hypothyroidism, unspecified; Z13.220 Encounter for screening for lipoid disorders
CPT/HCPCS: 80053; 80061; 85027; 84439; 84443

== ENCOUNTER 2024-09-10 00:28 | Outpatient (CLI) | payer BC, SELFPAY ==
--- NOTE | 2024-09-10 | DI.MAMMO_ITS ---
Exam(s) MAMMO SCREENING EXAM: MAMMO SCREENING CLINICAL HISTORY: SCREENING, Z12.31. TECHNIQUE: Bilateral full field digital CC and MLO mammographic images were obtained with 3D tomosynthesis and utilizing computer aided detection (CAD). COMPARISON: None. Prior mammograms 2014 and apparently not available FINDINGS: Fibroglandular tissue pattern is predominately fatty. No CAD designations. There are no new spiculated masses nor malignant appearing microcalcification groups. There is no significant architectural distortion nor skin thickening-retraction. IMPRESSION: No radiographic evidence of malignancy. BI-RADS Category 1 - Negative Breast Density - Category A - The breast are almost entirely fatty. Breast density Category C or D implies that the patient has dense breast tissue. Dense breast tissue can make it harder to find cancer on a mammogram. Dense breast tissue is also associated with an increased risk of breast cancer. This information about the result of the mammogram report was provided to the patient to raise their awareness. Use this report when you speak with the patient about their risks for breast cancer, which includes their family history. At that time, you may recommend additional screening tests (Ultrasound or MRI) as these tests may add significant information. A negative radiographic report should not delay biopsy if a dominant or clinically suspicious mass is present. Up to ten percent of cancers are not identified on mammography. A negative report may reinforce clinical impression. Adenosis and dense breasts may obscure an underlying neoplasm. False positive reports average 6 to 10%. Patient will receive a letter notifying them of these results.
== END 2024-09-10 00:48 ==
LOC: DI 00:28
PROVIDERS: PCP Nurse Practitioner Family; Visit Provider Nurse Practitioner Family
DX: Z12.31 Encounter for screening mammogram for malignant neoplasm of breast (principal); R92.313 Mammographic fatty tissue density, bilateral breasts
CPT/HCPCS: 77063; 77067